=== PATIENT | male | born 1995 | race Caucasian/White ===

== ENCOUNTER 2019-03-06 22:24 | Emergency (ER) | payer OTHER ==
[~2019-03-06] VITALS: Ht 172.7 cm; Wt 52.0 kg
[2019-03-06 22:31] VITALS: BP 119/71
--- NOTE | 2019-03-06 22:36 | NUR ---
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
== END 2019-03-06 23:32 | disposition home or self-care (01) ==
LOC: ED 22:55
DX: S60.411A Abrasion of left index finger, initial encounter (principal); X31.XXXA Exposure to excessive natural cold, initial encounter; Y93.89 Activity, other specified; Y92.89 Other specified places as the place of occurrence of the external cause; Y99.8 Other external cause status
CPT/HCPCS: 99281